=== PATIENT | male | born 1975 | race Caucasian/White ===

== ENCOUNTER 2017-12-01 21:41 | Emergency (ER) | payer OTHER ==
[~2017-12-01 21:41] MED LIST: ASPI-1471 PO; ASPI-715 PO; ATEN-1 PO; CLON0.5T66 PO; DILT240C84 PO; DILT240T PO; DOXY20PT PO; HYDR-4309 PO; IMDUR; LORA-1456 PO; MECL25TA27 PO; METHYLPREDNISONE; METO25TA23 PO; METO25TA93 PO; NITR0.4T3 SL; OMEP-125 PO; OMEP-218 PO; PROM-110 PO; PROP20TA56 PO; SERT-1 PO; SULF-198 PO
--- NOTE | 2017-12-01 21:50 | ER Report ---
History and Physical Time Seen By MD: 21:49 Hx. of Stated Complaint: Pt has "grabbing" chest pain that started this morning and comes and goes. HPI/ROS CHIEF COMPLAINT: Chest pain HISTORY OF PRESENT ILLNESS: 42-year-old male presents with several episodes of sharp chest pain lasting 10 minutes. The left upper sternal border throughout the day. Patient notes no associated symptoms of nausea, diaphoresis or shortness of breath. Patient recalls no traumatic injury. Patient denies back pain. He notes occasional GERD episode and this episode doesn't feel like that. Patient denies leg swelling or calf pain. Patient denies recent infectious symptoms. Patient notes no exacerbating or alleviating factors. REVIEW OF SYSTEMS: Respiratory: No cough, no dyspnea. Cardiovascular: As above Gastrointestinal: No vomiting, no abdominal pain. Musculoskeletal: No back pain. Allergies: Coded Allergies: Penicillins (Verified Allergy, Severe, HIVES, THROAT CLOSES, 12/01/17) Home Meds Reported Medications Metoprolol Tartrate (METOPROLOL TARTRATE) 25 Mg Tablet, 1 TAB PO BID, TAB 12/01/17 Aspirin (ASPIR 81) 81 Mg Tablet.dr, 81 MG PO QDAY, TAB 04/02/15 Discontinued Reported Medications Diltiazem Hcl (DILTIAZEM ER) 240 Mg Cap.er.deg, 240 MG PO 12/29/15 Reviewed Nurses Notes: Yes Old Medical Records Reviewed: Yes Hx Smoking: Yes Smoking Status: Former Smoker Exposure to Second Hand Smoke?: No Hx Substance Use Disorder: No Hx Alcohol Use: Yes (One day per week) Constitutional Vital Sign - Last 24 Hours 12/01/17 12/01/17 12/01/17 12/01/17 21:45 21:45 21:56 22:00 Temp 97.7 Pulse 67 63 Resp 14 14 B/P (MAP) 144/90 (108) 144/90 121/67 (85) Pulse Ox 95 94 O2 Delivery Room Air 12/01/17 12/01/17 12/01/17 12/01/17 22:11 22:16 22:30 22:31 Pulse 57 63 69 Resp 9 19 12 B/P (MAP) 112/77 (89) Pulse Ox 94 96 94 12/01/17 22:46 Pulse 57 Resp 11 Pulse Ox 94 Physical Exam General Appearance: The patient is alert, has no immediate need for airway protection and no current signs of toxicity. Vital signs stable, afebrile, pulse ox normal HEENT: Pupils equal and round no injection. TMs normal, oropharynx without redness or exudate, mucous members are moist Respiratory: Chest is non tender, lungs are clear to auscultation. No chest wall tenderness Cardiac: regular rate and rhythm, no murmur Gastrointestinal: Abdomen is soft and non tender, no masses, bowel sounds normal. Musculoskeletal: Neck: Neck is supple and non tender. No lymphadenopathy Extremities have full range of motion and are non tender. No edema, no calf tenderness Skin: No rashes or lesions. DIFFERENTIAL DIAGNOSIS: After history and physical exam differential diagnosis was considered for chest pain including but not limited to myocardial ischemia, pericarditis pulmonary embolus, chest wall pain, pleural inflammation and pulmonary infectious causes. Medical Decision Making Data Points Result Diagram: 12/01/17215412/01/172154 Laboratory Hematology Test 12/01/17 21:55 Red Blood Count 5.29 M/uL (4.00-5.60) Mean Corpuscular Volume 91.5 fL (80.0-96.0) Mean Corpuscular Hemoglobin 32.3 pg (26.0-33.0) Mean Corpuscular Hemoglobin Concent 35.3 g/dL (32.0-36.0) Red Cell Distribution Width 12.4 % (11.5-14.5) Mean Platelet Volume 8.0 fL (7.2-11.1) Neutrophils (%) (Auto) 55.0 % (39.4-72.5) Lymphocytes (%) (Auto) 34.0 % (17.6-49.6) Monocytes (%) (Auto) 7.5 % (4.1-12.4) Eosinophils (%) (Auto) 2.5 % (0.4-6.7) Basophils (%) (Auto) 1.0 % (0.3-1.4) Nucleated RBC Relative Count (auto) 0.0 /100WBC Neutrophils # (Auto) 5.6 K/uL (2.0-7.4) Lymphocytes # (Auto) 3.4 K/uL (1.3-3.6) Monocytes # (Auto) 0.8 K/uL (0.3-1.0) Eosinophils # (Auto) 0.3 K/uL (0.0-0.5) Basophils # (Auto) 0.1 K/uL (0.0-0.1) Nucleated RBC Absolute Count (auto) 0.00 K/uL D-Dimer Quantitative (PE/DVT) 0.28 ug/ml (0-0.50) Sodium Level 142 mmol/L (137-145) Potassium Level 3.7 mmol/L (3.5-5.0) Chloride Level 102 mmol/L (98-107) Carbon Dioxide Level 26 mmol/L (22-30) Blood Urea Nitrogen 10 mg/dl (9-21) Creatinine 1.00 mg/dl (0.66-1.25) Glomerular Filtration Rate Calc > 60.0 Random Glucose 79 mg/dl (75-110) Calcium Level 10.0 mg/dl (8.4-10.2) Total Bilirubin 0.7 mg/dl (0.2-1.3) Aspartate Amino Transf (AST/SGOT) 36 U/L (0-35) Alanine Aminotransferase (ALT/SGPT) 55 U/L (0-56) Alkaline Phosphatase 86 U/L (0-126) Troponin I < 0.012 ng/ml Total Protein 7.5 gm/dl (6.3-8.2) Albumin 4.4 g/dl (3.5-5.0) Chemistry Test 12/01/17 21:55 White Blood Count 10.1 k/uL (4.5-11.0) Red Blood Count 5.29 M/uL (4.00-5.60) Hemoglobin 17.1 g/dL (14.0-18.0) Hematocrit 48.4 % (42.0-52.0) Mean Corpuscular Volume 91.5 fL (80.0-96.0) Mean Corpuscular Hemoglobin 32.3 pg (26.0-33.0) Mean Corpuscular Hemoglobin Concent 35.3 g/dL (32.0-36.0) Red Cell Distribution Width 12.4 % (11.5-14.5) Platelet Count 264 K/uL (150-450) Mean Platelet Volume 8.0 fL (7.2-11.1) Neutrophils (%) (Auto) 55.0 % (39.4-72.5) Lymphocytes (%) (Auto) 34.0 % (17.6-49.6) Monocytes (%) (Auto) 7.5 % (4.1-12.4) Eosinophils (%) (Auto) 2.5 % (0.4-6.7) Basophils (%) (Auto) 1.0 % (0.3-1.4) Nucleated RBC Relative Count (auto) 0.0 /100WBC Neutrophils # (Auto) 5.6 K/uL (2.0-7.4) Lymphocytes # (Auto) 3.4 K/uL (1.3-3.6) Monocytes # (Auto) 0.8 K/uL (0.3-1.0) Eosinophils # (Auto) 0.3 K/uL (0.0-0.5) Basophils # (Auto) 0.1 K/uL (0.0-0.1) Nucleated RBC Absolute Count (auto) 0.00 K/uL D-Dimer Quantitative (PE/DVT) 0.28 ug/ml (0-0.50) Glomerular Filtration Rate Calc > 60.0 Calcium Level 10.0 mg/dl (8.4-10.2) Total Bilirubin 0.7 mg/dl (0.2-1.3) Aspartate Amino Transf (AST/SGOT) 36 U/L (0-35) Alanine Aminotransferase (ALT/SGPT) 55 U/L (0-56) Alkaline Phosphatase 86 U/L (0-126) Troponin I < 0.012 ng/ml Total Protein 7.5 gm/dl (6.3-8.2) Albumin 4.4 g/dl (3.5-5.0) Coagulation Test 12/01/17 21:55 D-Dimer Quantitative (PE/DVT) 0.28 ug/ml EKG/Imaging EKG Interpretation 12 lead EK Rhythm: normal sinus rhythm, sinus bradycardia, rate 58 bpm [place]: normal QRS: normal ST segments: normal, no evidence of ischemia or dysrhythmia Imaging X-ray: Single view portable chest x-ray was obtained. I viewed the images myself on the PACS system. My interpretation of the images is: No infiltrate, no effusion, normal mediastinum. The radiologist interpretation had no clinically significant variation from this interpretation. ED Course/Re-evaluation Clinical Indication for ER IV: IV Access ED Course Patient was minute to an examination room. H&P was done. The differential diagnoses was considered. On clinical examination. Patient has no clinical findings. There is no chest wall tenderness. His diagnostic studies are unremarkable for evidence of PE/DVT or cardiac ischemia. His EKG is unremarkable. Patient has no pain at present. He is advised to conservative treatment plan of ibuprofen and heat to the affected area. Patient advised to follow-up with primary care if symptoms persist past 3-5 days. Decision to Disposition Date: December 01, 2017 Decision to Disposition Time: 22:40 Depart Departure Latest Vital Signs Vital Signs Date Time Temp Pulse Resp B/P (MAP) Pulse Ox O2 Delivery O2 Flow Rate FiO2 12/01/17 22:46 57 11 94 12/01/17 22:30 112/77 (89) 12/01/17 21:45 97.7 Room Air Impression: Primary Impression: Chest wall pain Condition: Improved Disposition: HOME OR SELF-CARE Referrals: CORAL HAWLEY MD (PCP) Patient Instructions: Chest Wall Pain (ED) Additional Instructions: Take ibuprofen 200 mg 3 tablets 3 times a day for 3-5 days with food Apply heating pad to the affected area Follow-up with your primary care if unimproved in 3-5 days NURIA GRACIA DO December 01, 2017 21:50
[2017-12-01] MEDS ORDERED: METO25TA93 PO (21:54)
[2017-12-01] MEDS ORDERED: NS(*) 0.9% 1000 ML BAG 1,000 ML IV ONE (21:59)
[2017-12-01] MEDS ORDERED: ASPIRIN 81 MG CHEW CHEW ONE (22:00)
[2017-12-01 22:10] LABS: PLATELET COUNT, AUTOMATED 264 K/uL (150-450)
--- NOTE | 2017-12-01 22:27 | EKG ---
FACILITY: [facility] PATIENT NAME: AMADEO PARSONS : [id number] MR: [id number] V: [id number] EXAM DATE: ORDERING PHYSICIAN: NURIA GRACIA TECHNOLOGIST: SEBASTIAN Test Reason : CHEST PAIN Blood Pressure : / mmHG Vent. Rate : 058 BPM Atrial Rate : 058 BPM P-R Int : 148 ms QRS Dur : 088 ms QT Int : 398 ms P-R-T Axes : 050 -27 049 degrees QTc Int : 390 ms Sinus bradycardia Left axis No acute appearing ST-T findings Confirmed by GARRETT CORBETT ([id number] on 12/03/2017 11:16:51 AM Referred By: Confirmed By:GARRETT CORBETT
[2017-12-01 22:30] VITALS: BP 112/77
--- NOTE | 2017-12-01 22:50 | RADIOLOGY IMAGING REPORT ---
FACILITY: [facility] [place] PATIENT NAME: Alfredo Crook : 1975 MR: [id number] V: [id number] EXAM DATE: ORDERING PHYSICIAN: NURIA GRACIA TECHNOLOGIST: Location: [facility] Patient: Alfredo Crook : 1975 Visit/Account:[id number] Date of Sevice: 12/01/2017 PORTABLE CHEST: Indication: Chest pain. Technique: A single frontal film was obtained. Comparison: 10/11/2016 Skeletal and soft tissue structures: Intact and unremarkable. Heart and mediastinum: Within normal limits. Lung nnuo: Well-expanded and clear. No focal or diffuse opacities. Pleural spaces: Unremarkable. Impression: No acute process or significant change. Report Dictated By: Nico Caceres MD at 12/01/2017 10:46 PM Report E-Signed By: Nico Caceres MD at 12/01/2017 10:47 PM [id number]
== END 2017-12-01 23:18 | disposition home or self-care (01) ==
LOC: ER 21:58
DX: R07.89 Other chest pain (principal)
CPT/HCPCS: 71045; 84484; 85025; 85379; 93005; 96360; 99284; J7030; 82040; 82247; 82310; 82374; 82435; 82565; 82947; 84075; 84132; 84155; 84295; 84450; 84460; 84520